=== PATIENT | female | born 1975 | race Hispanic/Latino ===

== ENCOUNTER 2017-06-25 17:29 | Emergency (ER) | payer SELFPAY ==
[~2017-06-25] VITALS: Ht 160 cm; Wt 62.8 kg
[2017-06-25 18:05] LABS: HEMATOCRIT 40.8 % (36.0-46.0); HEMOGLOBIN 13.8 G/DL (11.9-15.5); MCH 28.9 PG (29.0-34.0); MCHC 33.8 G/DL (30.0-36.0); MCV 85.5 FL (83-99); PLATELET COUNT 215 K/uL (156-360); RBC DIS.WIDTH-CV 12.7 % (11.8-14.6); RBC DIS.WIDTH-SD 39.7 % (39-53); RED BLOOD COUNT 4.77 M/uL (3.80-5.20); WHITE BLOOD COUNT 14.9 K/uL (4.1-10.2)
[2017-06-25 18:17] LABS: CHLORIDE 106 mEq/L (99-109); POTASSIUM 3.6 mEq/L (3.7-5.4); SODIUM 135 mEq/L (136-147)
[2017-06-25 18:19] LABS: GLUCOSE 94 mg/dL (70-99); TOTAL PROTEIN 7.9 g/dL (6.4-8.3)
[2017-06-25 18:20] LABS: APPEARANCE SL.HAZY ((CLEAR)); BILIRUBIN NEGATIVE; BLOOD MODERATE; COLOR YELLOW ((YELLOW)); GLUCOSE (STRIP) NEGATIVE; KETONES 5; LEUKOCYTES TRACE; NITRITE NEGATIVE; PROTEIN (STRIP) NEGATIVE; SPECIFIC GRAVITY 1.023 (1.000-1.030)
[2017-06-25 18:21] LABS: TOTAL BILIRUBIN 0.5 mg/dL (0.0-1.0)
[2017-06-25 18:22] LABS: ALKALINE PHOSPHATASE 60 IU/L (3-129)
[2017-06-25 18:23] LABS: CREATININE 0.8 mg/dL (0.6-1.3); GFR ESTIMATE (CALCULATED) > 59 mL/min/
[2017-06-25 18:24] LABS: AST (GOT) 30 IU/L (2-34); UREA NITROGEN (BUN) 9 mg/dL (9-23)
[2017-06-25 18:25] LABS: ALT (GPT) 37 IU/L (3-49)
[2017-06-25 18:28] LABS: BACTERIA RARE /HPF; EPITHELIAL CELLS 2+ /HPF; MUCUS TRACE /LPF; UCUL ADDED? NO; WHITE BLOOD CELLS 0-5 /HPF (0-5)
[2017-06-25 18:31] LABS: QUANTITATIVE HCG < 4.0 MIU/ML
[2017-06-25] MEDS ORDERED: PEN-VEE K,VEET500 MG PO (18:55)
[2017-06-25 19:29] VITALS: BP 117/89
== END 2017-06-25 19:28 | disposition home or self-care (01) ==
LOC: EME 17:29
DX: J02.0 Streptococcal pharyngitis (principal); R31.9 Hematuria, unspecified
CPT/HCPCS: 80053; 81003; 84702; 85027; 87651 90; 99281; 99284; J0561